=== PATIENT | female | born 1970 | race Caucasian/White ===

== ENCOUNTER 2017-07-31 10:21 | Emergency (ER) | payer SELFPAY ==
[~2017-07-31] VITALS: Ht 165.1 cm; Wt 80.0 kg
[~2017-07-31 10:21] MED LIST: PRED10PA PO; Z.0.NO CURRENT MEDS; ZOFR4TAB3 SL
[2017-07-31 10:23] VITALS: BP 142/76; PULSE 70; RESP 24; TEMP 98.4; O2SAT 99
[2017-07-31] MEDS ORDERED: ACETAMINOPHEN/HYDROcodone 325 MG/5 MG TAB PO ONE (11:15)
--- NOTE | 2017-07-31 11:28 | PD ---
HPI Chief Complaint: Injury Time Seen by Provider: 11:01 Travel History International Travel<30 days: No Contact w/Intl Traveler<30days: No Traveled to known affect area: No History of Present Illness HPI 47-year-old female presents to the emergency department for evaluation of right foot injury and left ankle injury. Patient states that 4 days ago, she had a horse step on her right foot causing pain, ecchymosis, swelling. Patient has a small abrasion to the right dorsal foot. She states that her tetanus immunization is up-to-date. She states that due to compensating for her right foot pain, she twisted her left ankle yesterday. She now has swelling and pain to the left lateral ankle as well. Patient denies any other injury. She has no medical problems and takes no prescribed medications. She did take a Lortab last night for pain which did help her pain. Patient states movement and ambulation will worsen the pain. Lortab and rest will help alleviate pain. Moderate severity. PFSH Past Medical History Autoimmune Disease: No Cancer: No Chemotherapy: No Chest Pain: Yes Diabetes: No Diminished Hearing: No Glaucoma: No Headaches: Yes Hiatal Hernia: Yes Kidney Stones: No Musculoskeletal: Yes (2 DISKS WITH HERNIA AND A BULGING DISK) Psychiatric: No Radiation Therapy: No Renal Failure: No Thyroid Disease: No Ulcer: Yes ?: Not Past Surgical History Abdominal Surgery: No AICD: No Arteriovenous Shunt: No Cardiac Surgery: No Section: Yes Ear Surgery: No Endocrine Surgery: No Eye Surgery: No Genitourinary Surgery: Yes (BLADDER RECONSTRUCTION) Gynecologic Surgery: Yes Hysterectomy: Yes Insulin Pump: No Joint Replacement: No Oral Surgery: No Pacemaker: No Thoracic Surgery: No Other Surgery: Yes (ARM ) Social History Alcohol Use: No Tobacco Use: Yes (quit 10 weeks ago-today date 10/29/11) Substance Use: No Allergies-Medications (Allergen,Severity, Reaction): Coded Allergies: bee venom protein (honey bee) (Unverified Allergy, Severe, Swelling, ) angioedema ketorolac (Unverified Allergy, Severe, Itching, 02/04/17) cefaclor (Unverified Allergy, Unknown, RASH, 02/04/17) codeine (Unverified Allergy, Unknown, "LOOK LIKE A MARSHMELLOW", 02/04/17) erythromycin base (Unverified Allergy, Unknown, RASH, 02/04/17) penicillin G (Unverified Allergy, Unknown, THROAT SWELLS, 02/04/17) diphenhydramine (Unverified Adverse Reaction, Severe, Drowsiness, 02/04/17) Reported Meds & Prescriptions Reported Meds & Active Scripts Active No Active Prescriptions or Reported Medications Review of Systems Except as stated in HPI: all other systems reviewed are Neg Physical Exam Narrative GENERAL: Well-nourished, well-developed female patient, afebrile. SKIN: Focused skin assessment warm/dry. Patient has small abrasion to the right dorsal foot. She has ecchymosis to the right dorsal foot as well. HEAD: Normocephalic. Atraumatic. EYES: No scleral icterus. No injection or drainage. NECK: Supple, trachea midline. No JVD or lymphadenopathy. CARDIOVASCULAR: Regular rate and rhythm without murmurs, gallops, or rubs. Bilateral pedal pulses are 2+. RESPIRATORY: Breath sounds equal bilaterally. No accessory muscle use. Lungs sounds are clear to auscultation. GASTROINTESTINAL: Abdomen soft, non-tender, nondistended. MUSCULOSKELETAL: No cyanosis, or edema. Patient has tenderness over right dorsal and lateral foot. She also has tenderness over left lateral ankle. BACK: Nontender without obvious deformity. No CVA tenderness. Data Data Last Documented VS Vital Signs Date Time Temp Pulse Resp B/P (MAP) Pulse Ox O2 Delivery O2 Flow Rate FiO2 07/31/17 10:23 98.4 70 24 142/76 (98) 99 Orders Orders Foot, Complete ([id number]) (07/31/17 ) Ankle, Complete ([id number]) (07/31/17 ) Acetamin-Hydrocod 325-5 Mg (Hodge 5-325 (07/31/17 11:15) MDM Medical Decision Making Medical Screen Exam Complete: Yes Emergency Medical Condition: Yes Medical Record Reviewed: Yes Interpretation(s) x-ray right foot CONCLUSION: Benign-appearing bone lesion involving the first metatarsal. No evidence of acute bony injury. x-ray left ankle - CONCLUSION: No acute bony injury Differential Diagnosis Foot fracture versus contusion versus ankle sprain versus ankle fracture Narrative Course 47-year-old female presents to the emergency department for evaluation of right foot injury and left ankle injury. Patient is given Hodge 5/325 mg by mouth in the emergency department for pain. Patient has allergy listed to acetaminophen and codeine, but states that she can take Hodge without difficulty. X-ray of the right foot and left ankle are ordered and pending. X-ray of the right foot shows no acute fracture. X-ray of the left ankle shows no acute fracture. Patient is provided Rick bandage to left ankle and is given crutches. She is encouraged to ice, elevate. She will be discharged with a prescription for ibuprofen, which she states that she can take. The patient was discharged in stable condition with instructions, including return instructions and follow up instructions. Diagnosis Primary Impression: Left ankle sprain Qualified Codes: S93.402A - Sprain of unspecified ligament of left ankle, initial encounter Additional Impression: Contusion of right foot Qualified Codes: S90.31XA - Contusion of right foot, initial encounter Referrals: Primary Care Physician call for appointment Patient Instructions: Ankle Sprain (ED), Contusion in Adults (ED), General Instructions Additional Instructions: Wear Rick bandage and use crutches as needed for support. Rest. Elevate. Ice for 20 minutes 4-5 times daily. Take ibuprofen as directed as needed with food for pain. Follow-up with your primary care physician. Return to the emergency department for any acute worsening of symptoms. Med/Other Pt SpecificInfo: Prescription(s) given Scripts Ibuprofen (Ibuprofen) 600 Mg Tab 600 MG PO TID Y for PAIN SCALE 1 TO 10, #21 TAB 0 Refills Prov: Kim Chavez 07/31/17 Disposition: 01 DISCHARGE HOME Condition: Stable Kim Chavez Jul 31, 2017 11:26
--- NOTE | 2017-07-31 11:35 | RADRPT ---
EXAM DATE/TIME: 07/31/2017 11:19 [facility] COMPARISON: No previous studies available for comparison. INDICATIONS : Right foot pain; horse stepped on foot 4 days ago. MEDICAL HISTORY : None. SURGICAL HISTORY : None. ENCOUNTER: Initial ACUITY: 4 - 6 days PAIN SCORE: 4/10 LOCATION: Right dorsal foot. FINDINGS: There is a slightly greater than 3 cm well circumscribed mixed lucent and sclerotic slightly expansil e lesion involving the dorsal distal right first metatarsal. The appearance would be most consistent with enchondroma. The bony elements are otherwise intact. No evidence of fracture or dislocation. No significant articular abnormalities noted. Mineralization is otherwise normal. CONCLUSION: Benign-appearing bone lesion involving the first metatarsal. No evidence of acute bony injury. Roberto Carlos Rojas MD on July 31, 2017 at 11:30 Board Certified Radiologist. This report was verified electronically.
--- NOTE | 2017-07-31 11:36 | RADRPT ---
EXAM DATE/TIME: 07/31/2017 11:25 [facility] COMPARISON: FOOT RIGHT COMPLETE ([id number]), July 31, 2017, 11:19. INDICATIONS : Left ankle pain; fell lastnight. MEDICAL HISTORY : None. SURGICAL HISTORY : None. ENCOUNTER: Initial ACUITY: 1 day PAIN SCORE: 6/10 LOCATION: Left ankle. FINDINGS: Three view exam was performed of the left ankle. The bony structures are in normal alignment. No ev idence of fracture, dislocation or bony destruction. There is mild soft tissue swelling in the ankle and hindfoot.. The ankle mortise is intact. No radiopaque foreign bodies are seen. Bony mineraliza tion is normal. CONCLUSION: No acute bony injury Roberto Carlos Rojas MD on July 31, 2017 at 11:32 Board Certified Radiologist. This report was verified electronically.
[2017-07-31] MEDS ORDERED: IBUP-232 PO (11:45)
[2017-07-31 12:10] VITALS: RESP 20
== END 2017-07-31 12:10 | disposition home or self-care (01) ==
LOC: NEPK 10:21
DX: S93.402A Sprain of unspecified ligament of left ankle, initial encounter (principal); S90.31XA Contusion of right foot, initial encounter; W55.19XA Other contact with horse, initial encounter
CPT/HCPCS: 73610; 73630; 99283; E0113